=== PATIENT | male | born 1985 | race Asian ===

== ENCOUNTER 2019-04-18 11:43 | Emergency (ER) | payer BC ==
--- NOTE | 2019-04-18 12:13 | RAD ---
Exam: Chest one view HISTORY:Emesis. Comparison: None FINDINGS: Cardiac silhouette: Normal Aorta: Unremarkable Pulmonary vessels: Normal Costophrenic angles: Clear LUNGS: Subtle hazy opacity in the right lower lobe. Correlate for aspiration. Pneumothorax: None Osseous abnormalities: None IMPRESSION: Subtle hazy opacity in the right lower lobe. Correlate for aspiration.
[2019-04-18 12:36] LABS: #Eosinphils 0.2 thou/uL (0.0-0.7); #Lymphocytes 1.4 thou/uL (1.20-3.40); #Monocytes 0.5 thou/uL (0.11-0.59); #Neutrophils 4.3 thou/uL (1.40-6.50); %Basophils 0.6 % (0.0-1.0); %Eosinophils 3.6 % (0.0-10.0); %Lymphocytes 21.6 % (21.0-51.0); %Monocytes 7.2 % (0.0-10.0); Hemoglobin 16.1 g/dL (14.0-18.0); Mean Corpuscular HGB CONC 32.5 g/dL (32.0-36.0); Mean Corpuscular Hemoglobin 29.2 pg (27.0-31.0); Mean Corpuscular Volume 89.6 fL (78.0-98.0); Mean Platelet Volume 6.2 fL (7.4-10.4); Platelet Count 257 thou/uL (130-400); Red Blood Cell (RBC) Count 5.54 mill/uL (4.70-6.10); White Blood Cell (WBC) Count 6.4 thou/uL (4.8-10.8)
[2019-04-18 13:00] LABS: ALT (SGPT) 60 U/L (8-55); AST (SGOT) 24 U/L (5-34); Albumin 4.6 g/dL (3.5-5.0); Alkaline Phosphatase 84 U/L (40-110); Anion Gap 14 mmol/L (10-20); BUN (Urea Nitrogen) 20 mg/dL (8.9-20.6); Bilirubin, Total 0.5 mg/dL (0.2-1.2); CK (CPK) 530 U/L (30-200); Calc. Creatinine Clearance 0 mL/min (70-130); Calcium 9.4 mg/dL (7.8-10.44); Carbon Dioxide 27 mmol/L (22-29); Chloride 101 mmol/L (98-107); Estimated GFR-MDRD 75; Globulin 3.1 g/dL (2.4-3.5); Glucose 83 mg/dL (70-105); Lipase 19 U/L (8-78); Potassium 4.4 mmol/L (3.5-5.1); Protein, Total 7.7 g/dL (6.0-8.3); Sodium 138 mmol/L (136-145)
== END 2019-04-18 13:56 | disposition home or self-care (01) ==
LOC: ERS 11:43
DX: E86.0 Dehydration (principal); R55 Syncope and collapse; R11.10 Vomiting, unspecified; Z79.899 Other long term (current) drug therapy
CPT/HCPCS: 36415; 71045; 80053; 82550; 83690; 84484; 85025; 93005; 94760; 96360